=== PATIENT | female | born 1995 | race Caucasian/White ===

== ENCOUNTER → 2017-08-29 | Outpatient (CLI) | payer MEDICAID ==
[~2017-08-29] MED LIST: MACR100C2 PO; PROM25TA10 PO; SPRI28TA PO; SUMA50 PO
== END ==
LOC: HPND 12:40
PROVIDERS: ATTEND Family Medicine
DX: O36.80X0 Pregnancy with inconclusive fetal viability, not applicable or unspecified (principal)
CPT/HCPCS: 76801

== ENCOUNTER 2017-09-05 19:24 | Emergency (ER) | payer MEDICAID ==
[~2017-09-05] VITALS: Ht 160 cm; Wt 102.3 kg
[~2017-09-05 19:24] MED LIST changes: -MACR100C2 PO; -PROM25TA10 PO
[2017-09-05 19:26] VITALS: BP 136/89; PULSE 98; RESP 16; TEMP 98.3; O2SAT 98
[2017-09-05] MEDS ORDERED: SODIUM CHLOR 0.9% 1000 ML INJ 1,000 ML IV ONE (19:49)
--- NOTE | 2017-09-05 19:52 | PD ---
HPI Chief Complaint: Related Problem Time Seen by Provider: 19:40 Travel History International Travel<30 days: No Contact w/Intl Traveler<30days: No Traveled to known affect area: No History of Present Illness HPI This is a 22-year-old female at estimated gestational age 11 weeks based on ultrasound at her clinical support tech's office 2 weeks ago. She presents for evaluation nausea and vomiting. For the past 3 days she has had nausea, vomiting, difficulty keeping food and fluids down. Symptoms are moderate, aggravated by , worst in the morning. She endorses some white vaginal discharge for the past week as well. She denies any abdominal pain, fevers or chills, flank pain, dysuria, chest pain or shortness of breath. She has no other complaints at this time. PFSH Past Medical History ?: Social History Alcohol Use: No Tobacco Use: No Substance Use: No Allergies-Medications (Allergen,Severity, Reaction): Coded Allergies: cefepime (Unverified Allergy, Severe, Hives, 08/14/17) ceftaroline fosamil (Unverified Allergy, Severe, Hives, 08/14/17) Reported Meds & Prescriptions Reported Meds & Active Scripts Active Macrobid (Nitrofurantoin Monohydrate Macrocrystals) 100 Mg Capsule 100 Mg PO BID 7 Days Phenergan (Promethazine HCl) 25 Mg Tablet 25 Mg PO Q6H PRN Review of Systems Except as stated in HPI: all other systems reviewed are Neg Physical Exam Narrative GENERAL: Well-developed well-nourished female in no acute distress SKIN: Warm and dry. HEAD: Atraumatic. Normocephalic. EYES: Pupils equal and round. No scleral icterus. No injection or drainage. ENT: No nasal bleeding or discharge. Mucous membranes pink and moist. NECK: Trachea midline. No JVD. CARDIOVASCULAR: Regular rate and rhythm. No murmur appreciated. RESPIRATORY: No accessory muscle use. Clear to auscultation. Breath sounds equal bilaterally. GASTROINTESTINAL: Abdomen soft, non-tender, nondistended. Hepatic and splenic margins not palpable. heart tones obtained, 130. MUSCULOSKELETAL: No obvious deformities. No clubbing. No cyanosis. No edema. NEUROLOGICAL: Awake and alert. No obvious cranial nerve deficits. Motor grossly within normal limits. Normal speech. PSYCHIATRIC: Appropriate mood and affect; insight and judgment normal. Data Data Last Documented VS Vital Signs Date Time Temp Pulse Resp B/P (MAP) Pulse Ox O2 Delivery O2 Flow Rate FiO2 09/05/17 19:26 98.3 98 16 136/89 (105) 98 Room Air Orders Orders Complete Blood Count With Diff (09/05/17 19:49) Basic Metabolic Panel (Bmp) (09/05/17 19:49) Gc And Chlamydia Pcr (09/05/17 19:49) Wet Prep Profile (09/05/17 19:49) Urinalysis - C+S If Indicated (09/05/17 19:49) Iv Access Insert/Monitor (09/05/17 19:49) Sodium Chlor 0.9% 1000 Ml Inj (Ns 1000 M (09/05/17 19:49) Ondansetron Inj (Zofran Inj) (09/05/17 20:00) Potassium Chloride (Kcl) (09/05/17 21:15) Ed Discharge Order (09/05/17 21:42) Labs Laboratory Tests Test 09/05/17 20:04 09/05/17 20:14 Urine Color YELLOW Urine Turbidity HAZY Urine pH 6.0 Urine Specific [place] 1.037 Urine Protein 30 mg/dL Urine Glucose (UA) NEG mg/dL Urine Ketones TRACE mg/dL Urine Occult Blood NEG Urine Nitrite NEG Urine Bilirubin NEG Urine Urobilinogen 2.0 MG/DL Urine Leukocyte Esterase TRACE Urine RBC 2 /hpf Urine WBC 3 /hpf Urine Squamous Epithelial Cells 4 /hpf Urine Bacteria RARE /hpf Urine Mucus MANY /lpf Microscopic Urinalysis Comment CULT NOT INDICATED Clue Cells (Wet Prep) NONE SEEN Vaginal Trichomonas (Wet Prep) NONE SEEN Vaginal Yeast (Wet Prep) NONE SEEN White Blood Count 11.9 TH/MM3 Red Blood Count 4.67 MIL/MM3 Hemoglobin 13.1 GM/DL Hematocrit 38.8 % Mean Corpuscular Volume 83.2 FL Mean Corpuscular Hemoglobin 28.1 PG Mean Corpuscular Hemoglobin Concent 33.8 % Red Cell Distribution Width 14.9 % Platelet Count 261 TH/MM3 Mean Platelet Volume 9.6 FL Neutrophils (%) (Auto) 78.0 % Lymphocytes (%) (Auto) 14.1 % Monocytes (%) (Auto) 7.2 % Eosinophils (%) (Auto) 0.4 % Basophils (%) (Auto) 0.3 % Neutrophils # (Auto) 9.3 TH/MM3 Lymphocytes # (Auto) 1.7 TH/MM3 Monocytes # (Auto) 0.9 TH/MM3 Eosinophils # (Auto) 0.0 TH/MM3 Basophils # (Auto) 0.0 TH/MM3 CBC Comment DIFF FINAL Differential Comment Blood Urea Nitrogen 6 MG/DL Creatinine 0.70 MG/DL Random Glucose 84 MG/DL Calcium Level 8.9 MG/DL Sodium Level 135 MEQ/L Potassium Level 3.4 MEQ/L Chloride Level 104 MEQ/L Carbon Dioxide Level 23.1 MEQ/L Anion Gap 8 MEQ/L Estimat Glomerular Filtration Rate 106 ML/MIN [facility] Medical Decision Making Medical Screen Exam Complete: Yes Emergency Medical Condition: Yes Medical Record Reviewed: Yes Differential Diagnosis Nausea and vomiting in , hyperemesis gravidarum, dehydration, electrolyte abnormality Narrative Course 22-year-old female 11 weeks gestational age presents with 3 days of nausea and vomiting and one week of white vaginal discharge. Physical examination is reassuring. Her abdomen is soft and nontender. Plan is for basic lab work, pelvic examination. She will be given IV fluids and Zofran which is category B and we discussed the risk and benefits of Zofran. Upon reexamination the patient feels improved, tolerating oral hydration. Urinalysis reveals a symptomatic bacteriuria. Potassium is 3.4, she was given oral potassium chloride. She is stable for discharge. Diagnosis Primary Impression: Asymptomatic bacteriuria Additional Impression: Nausea and vomiting during Additional Instructions: Medication as prescribed. Advance diet as tolerated. Follow-up with clinical support tech. Return for any emergent medical conditions. Med/Other Pt SpecificInfo: Prescription(s) given Scripts Nitrofurantoin Monohydrate Macrocrystals (Macrobid) 100 Mg Capsule 100 MG PO BID for Infection for 7 Days, #14 CAP 0 Refills Prov: Paulina Stephenson DO 09/05/17 Promethazine (Phenergan) 25 Mg Tablet 25 MG PO Q6H Y for NAUSEA OR VOMITING, #20 TAB 0 Refills Prov: Paulina Stephenson DO 09/05/17 Disposition: 01 DISCHARGE HOME Condition: Stable Andrew Sorenson Sep 05, 2017 19:52
[2017-09-05] MEDS ORDERED: ONDANSETRON HCL 4 MG/2 ML VIAL IVP ONE (20:00)
[2017-09-05 20:43] LABS: BACTERIA, URINE RARE /hpf; BILIRUBIN, URINE NEG (NEG); BLOOD, URINE NEG (NEG); GLUCOSE,URINE NEG (NEG); KETONE, URINE TRACE mg/dL (NEG); MUCUS URINE MANY /lpf (OCC); NITRITE,URINE NEG (NEG); SQUAMOUS EPITHELIAL CELL URINE 4 /hpf (0-5); URINE COLOR YELLOW (YELLW/STRAW); URINE LEUKOCYTE ESTERASE TRACE (NEG)
[2017-09-05 20:44] LABS: AUTOMATED NEUTROPHIL # 9.3 TH/MM3 (1.8-7.7); BASOPHIL % 0.3 % (0.0-2.0); EOSINOPHIL % 0.4 % (0.0-4.0); HEMATOCRIT 38.8 % (35.0-46.0); HEMOGLOBIN 13.1 GM/DL (11.6-15.3); LYMPH % 14.1 % (9.0-44.0); LYMPHOCYTE # 1.7 TH/MM3 (1.0-4.8); MEAN CELL VOLUME 83.2 FL (80.0-100.0); MEAN CORPUSCULAR HEMOGLOBIN 28.1 PG (27.0-34.0); MEAN CORPUSCULAR HGB CONC 33.8 % (32.0-36.0); MEAN PLATELET VOLUME 9.6 FL (7.0-11.0); MONO % 7.2 % (0.0-8.0); MONOCYTE # 0.9 TH/MM3 (0-0.9); PLATELET COUNT 261 TH/MM3 (150-450); RED BLOOD COUNT 4.67 MIL/MM3 (4.00-5.30); RED CELL DISTRIBUTION WIDTH 14.9 % (11.6-17.2); WHITE BLOOD COUNT 11.9 TH/MM3 (4.0-11.0)
[2017-09-05 20:49] LABS: BICARBONATE 23.1 MEQ/L (21.0-32.0); CALCIUM 8.9 MG/DL (8.5-10.1); CREATININE 0.7 MG/DL (0.50-1.00)
[2017-09-05] MEDS ORDERED: POTASSIUM CHLORIDE 20 MEQ CONTROLLED RELEASE TAB PO ONE (21:15)
[2017-09-05] MEDS ORDERED: MACR100C2 PO (21:41)
[2017-09-05] MEDS ORDERED: PROM25TA10 PO (21:41)
== END 2017-09-05 21:55 | disposition home or self-care (01) ==
LOC: NEPD 19:24
DX: O21.9 Vomiting of pregnancy, unspecified (principal); R82.71 Bacteriuria; Z3A.11 11 weeks gestation of pregnancy
CPT/HCPCS: 80048; 81001; 85025; 87210; 87491; 87591; 96361; 96374; 99284; J2405; J7030

== ENCOUNTER 2017-10-08 12:57 | Emergency (ER) | payer MEDICAID ==
[~2017-10-08 12:57] MED LIST changes: +MACR100C2 PO; +PROM25TA10 PO; -SPRI28TA PO; -SUMA50 PO
[2017-10-08 12:59] VITALS: BP 120/74; PULSE 89; RESP 16; TEMP 98.7; O2SAT 100
[2017-10-08 14:25] LABS: AUTOMATED NEUTROPHIL # 8.3 TH/MM3 (1.8-7.7); BASOPHIL % 0.2 % (0.0-2.0); EOSINOPHIL % 0.4 % (0.0-4.0); HEMATOCRIT 38.8 % (35.0-46.0); HEMOGLOBIN 13.6 GM/DL (11.6-15.3); LYMPH % 13.7 % (9.0-44.0); LYMPHOCYTE # 1.4 TH/MM3 (1.0-4.8); MEAN CELL VOLUME 84.4 FL (80.0-100.0); MEAN CORPUSCULAR HEMOGLOBIN 29.5 PG (27.0-34.0); MEAN CORPUSCULAR HGB CONC 34.9 % (32.0-36.0); MEAN PLATELET VOLUME 10.1 FL (7.0-11.0); MONOCYTE # 0.6 TH/MM3 (0-0.9); NEUT % 79.7 % (16.0-70.0); PLATELET COUNT 228 TH/MM3 (150-450); RED CELL DISTRIBUTION WIDTH 14.1 % (11.6-17.2); WHITE BLOOD COUNT 10.4 TH/MM3 (4.0-11.0)
[2017-10-08 14:45] LABS: ALBUMIN 3.1 GM/DL (3.4-5.0); AST (GOT) 25 U/L (15-37); BICARBONATE 21.4 MEQ/L (21.0-32.0); BLOOD UREA NITROGEN 4 MG/DL (7-18); CALCIUM 9.2 MG/DL (8.5-10.1); CHLORIDE 102 MEQ/L (98-107); CREATININE 0.53 MG/DL (0.50-1.00); GLOMERULAR FILTRATION RATE 146 ML/MIN (>89); GLUCOSE,RANDOM 73 MG/DL (74-106); LIPASE 86 U/L (73-393); SODIUM (NA) 135 MEQ/L (136-145)
[2017-10-08 14:47] LABS: ALT (GPT) 39 U/L (10-53)
[2017-10-08 14:50] LABS: ALKALINE PHOSPHATASE 100 U/L (45-117); TOTAL BILIRUBIN ADULT 0.3 MG/DL (0.2-1.0); TOTAL PROTEIN 7.9 GM/DL (6.4-8.2)
[2017-10-08] MEDS ORDERED: ONDANSETRON ODT 4 MG TAB PO ONE (16:00)
[2017-10-08] MEDS ORDERED: ZOFR4TAB3 SL ×2 (16:25→16:30)
--- NOTE | 2017-10-08 16:25 | PD ---
HPI Chief Complaint: Related Problem Time Seen by Provider: 15:54 Travel History International Travel<30 days: No Contact w/Intl Traveler<30days: No Traveled to known affect area: No History of Present Illness HPI 22 year-old woman, presents to the emergency department complaining of nausea vomiting setting of . She about 15 weeks . She's had nausea vomiting throughout the . States the medicines she has are not helping. No vaginal discharge or vaginal bleeding. Some abdominal cramping just with throwing up, no other abdominal pains or pelvic cramping. Diarrhea day or so ago, this with constipation, now back to normal. No urinary symptoms. History Past Medical History Medical History: Denies Significant Hx Past Surgical History Surgical History: No Previous Surgery Social History Alcohol Use: No Tobacco Use: No Allergies-Medications (Allergen,Severity, Reaction): Coded Allergies: cefepime (Unverified Allergy, Severe, Hives, 10/08/17) ceftaroline fosamil (Unverified Allergy, Severe, Hives, 10/08/17) Reported Meds & Prescriptions Reported Meds & Active Scripts Active Phenergan (Promethazine HCl) 25 Mg Tablet 25 Mg PO Q6H PRN Review of Systems Except as stated in HPI: all other systems reviewed are Neg Physical Exam Narrative GENERAL: Well-appearing 22 woman, no acute distress. SKIN: Focused skin assessment warm/dry. HEAD: Atraumatic. Normocephalic. EYES: Pupils equal and round. No scleral icterus. No injection or drainage. ENT: No nasal bleeding or discharge. Mucous membranes pink and moist. NECK: Trachea midline. No JVD. CARDIOVASCULAR: Regular rate and rhythm. No murmur appreciated. RESPIRATORY: No accessory muscle use. Clear to auscultation. Breath sounds equal bilaterally. GASTROINTESTINAL: Abdomen soft, non-tender, nondistended. Hepatic and splenic margins not palpable. MUSCULOSKELETAL: No obvious deformities. No clubbing. No edema. NEUROLOGICAL: Awake and alert. No obvious cranial nerve deficits. Motor grossly within normal limits. Normal speech. PSYCHIATRIC: Appropriate mood and affect; insight and judgment normal. Data Data Last Documented VS Vital Signs Date Time Temp Pulse Resp B/P (MAP) Pulse Ox O2 Delivery O2 Flow Rate FiO2 10/08/17 12:59 98.7 89 16 120/74 (89) 100 Orders Orders Complete Blood Count With Diff (10/08/17 13:11) Comprehensive Metabolic Panel (10/08/17 13:11) Lipase (10/08/17 13:11) Ondansetron Odt (Zofran Odt) (10/08/17 16:00) Labs Laboratory Tests Test 10/08/17 13:25 White Blood Count 10.4 TH/MM3 Red Blood Count 4.60 MIL/MM3 Hemoglobin 13.6 GM/DL Hematocrit 38.8 % Mean Corpuscular Volume 84.4 FL Mean Corpuscular Hemoglobin 29.5 PG Mean Corpuscular Hemoglobin Concent 34.9 % Red Cell Distribution Width 14.1 % Platelet Count 228 TH/MM3 Mean Platelet Volume 10.1 FL Neutrophils (%) (Auto) 79.7 % Lymphocytes (%) (Auto) 13.7 % Monocytes (%) (Auto) 6.0 % Eosinophils (%) (Auto) 0.4 % Basophils (%) (Auto) 0.2 % Neutrophils # (Auto) 8.3 TH/MM3 Lymphocytes # (Auto) 1.4 TH/MM3 Monocytes # (Auto) 0.6 TH/MM3 Eosinophils # (Auto) 0.0 TH/MM3 Basophils # (Auto) 0.0 TH/MM3 CBC Comment DIFF FINAL Differential Comment Blood Urea Nitrogen 4 MG/DL Creatinine 0.53 MG/DL Random Glucose 73 MG/DL Total Protein 7.9 GM/DL Albumin 3.1 GM/DL Calcium Level 9.2 MG/DL Alkaline Phosphatase 100 U/L Aspartate Amino Transf (AST/SGOT) 25 U/L Alanine Aminotransferase (ALT/SGPT) 39 U/L Total Bilirubin 0.3 MG/DL Sodium Level 135 MEQ/L Potassium Level 3.5 MEQ/L Chloride Level 102 MEQ/L Carbon Dioxide Level 21.4 MEQ/L Anion Gap 12 MEQ/L Estimat Glomerular Filtration Rate 146 ML/MIN Lipase 86 U/L MDM Medical Decision Making Medical Screen Exam Complete: Yes Emergency Medical Condition: Yes Differential Diagnosis CBC unremarkable. CBC unremarkable CMP unremarkable normal and lipase normal Narrative Course 22 year-old woman, , vomiting, taking Phenergan at home but still throwing it up. Benefit from schedule Zofran, when necessary Phenergan, outpatient follow-up. Diagnosis Primary Impression: Excessive vomiting Additional Instructions: Takes Zofran 3 times daily, scheduled. Continue promethazine as needed. Return to the emergency department for any new or worsening symptoms. Med/Other Pt SpecificInfo: Prescription(s) given Scripts Ondansetron Odt (Zofran Odt) 4 Mg Tab 4 MG SL Q8HR Y for Nausea/Vomiting, #30 TAB 0 Refills Prov: Demario Real MD 10/08/17 Disposition: 01 DISCHARGE HOME Condition: Stable Demario Real MD Oct 08, 2017 16:25
== END 2017-10-08 16:52 | disposition home or self-care (01) ==
LOC: NEPD 12:57
DX: O21.9 Vomiting of pregnancy, unspecified (principal); Z3A.15 15 weeks gestation of pregnancy
CPT/HCPCS: 80053; 83690; 85025; 99283

== ENCOUNTER 2017-10-12 08:09 | Emergency (ER) | payer MEDICAID ==
[~2017-10-12] VITALS: Ht 160 cm; Wt 106.6 kg
[~2017-10-12 08:09] MED LIST changes: -MACR100C2 PO; +ZOFR4TAB3 SL
[2017-10-12 08:10] VITALS: BP 134/77; PULSE 83; RESP 16; TEMP 98.4; O2SAT 99
--- NOTE | 2017-10-12 09:23 | PD ---
HPI Chief Complaint vaginal discharge Date Seen: Oct 12, 2017 Time Seen: 09:20 Travel History International Travel<30 Days: No Contact w/Intl Traveler<30Days: No History of Present Illness HPI Mrs. Steele is a 22-year-old female who presents today to the ED for vaginal discharge. She states her symptoms started yesterday and have worsened. He describes a vaginal discharge is thick, white and creamy. Denies any dysuria or foul odor. Endorses burning, especially during sexual intercourse. Her last sexual intercourse was 2 days ago. Denies any history of sexually transmitted infections. Denies any symptoms like this before. Otherwise, denies any other symptoms. Denies any vaginal bleeding, loss of fluids, contractions. Endorses good movement. Sees Dr. Matthew in the [facility]. Weeks Gestation: 16 Para: 0 : 1 History Past Medical History Medical History: Denies Significant Hx Obstetric History Obstetric History Past Surgical History Surgical History: No Previous Surgery Family History Family History: Negative Social History Alcohol Use: No Tobacco Use: No Substance Abuse: No Allergies-Medications (Allergen,Severity, Reaction): Coded Allergies: cefepime (Unverified Allergy, Severe, Hives, 10/12/17) ceftaroline fosamil (Unverified Allergy, Severe, Hives, 10/12/17) Home Meds Active Scripts Ondansetron Odt (Zofran Odt) 4 Mg Tab, 4 MG SL Q8HR Y for Nausea/Vomiting, #30 TAB 0 Refills Prov:Demario Real MD 10/08/17 Ondansetron Odt (Zofran Odt) 4 Mg Tab, 4 MG SL Q8HR Y for Nausea/Vomiting, #30 TAB 0 Refills Prov:Demario Real MD 10/08/17 Promethazine (Phenergan) 25 Mg Tablet, 25 MG PO Q6H Y for NAUSEA OR VOMITING, # 20 TAB 0 Refills Prov:Paulina Stephenson DO 09/05/17 Discontinued Scripts Nitrofurantoin Monohydrate Macrocrystals (Macrobid) 100 Mg Capsule, 100 MG PO BID for Infection for 7 Days, #14 CAP 0 Refills Prov:Paulina Stephenson DO 09/05/17 Review of Systems General / Constitutional: No: Fever, Weight Gain, Chills, Other Eyes: No: Diploplia, Blurred Vision, Visual changes, Pain, Photophobia HENT: No: Headaches, Vertigo, Lightheadedness Cardiovascular: No: Irregular Rhythm, Chest Pain or Discomfort, Palpitations, Tachycardia, Syncope, Varicosities, Edema, Cyanosis Respiratory: No: Cough, Short of Breath, Other Gastrointestinal: No: Nausea, Vomiting, Diarrhea Genitourinary: Discharge, No: Urgency, Frequency, Dysuria, Decreased Urinary Output, Oliguria, Incontinence, Pelvic Pain, Vaginal Bleeding Musculoskeletal: No: Limited ROM, Weakness, Cramping, Edema, Pain Skin: No Rash, No Itching, No Dryness, No Lumps, No Change in Pigmentation, No Change in Nails, No Alopecia, No Lesions Neurologic: No: Weakness, Dizziness, Syncope, Focal Abnormalities, Coordination Problem, Headache, Slurred Speech, Seizures Psychiatric: No: Depression, Suicidal Ideations, Homicidal Ideation Endocrine: No: Heat Intolerance, Cold Intolerance, Polydipsia, Polyuria, Other Physical Exam Vital Signs Date Time Temp Pulse Resp B/P (MAP) Pulse Ox O2 Delivery O2 Flow Rate FiO2 10/12/17 08:10 98.4 83 16 134/77 (96) 99 Narrative GENERAL: Well-nourished, well-developed patient. SKIN: Warm and dry. HEAD: Normocephalic and atraumatic. EYES: No scleral icterus. No injection or drainage. ENT: No nasal drainage noted. Mucous membranes pink. Airway patent. NECK: Supple, trachea midline. No JVD. CARDIOVASCULAR: Regular rate and rhythm without murmurs, gallops, or rubs. RESPIRATORY: Breath sounds equal bilaterally. No accessory muscle use. ABDOMEN/GI: Abdomen soft, non-tender, bowel sounds present, no rebound, no guarding Gravid to 16 weeks size GENITOURINARY: External Genitalia: intact and normal in appearance Cervix free of inflammation. White creamy discharge present in vaginal vault. Cultures obtained EXTREMITIES: No cyanosis or edema. BACK: Nontender without obvious deformity. No CVA tenderness. NEUROLOGICAL: Awake and alert. Motor and sensory grossly within normal limits. Five out of 5 muscle strength in all muscle groups. Normal speech. Data Data Vital Signs Reviewed: Yes [facility] Medical Record Reviewed: Yes Interpretation(s) 22 y/o G1 at 16/2 presents with vaginal discharge. Speculum exam shows white discharge in vaginal vault. No cervical inflammation. Wet prep collected FHT reactive Narrative Course / MDM Wet prep negative. D/c home and f/u outpatient. Has appt next week with Dr. Matthew. Return to ED if vaginal bleeding, loss of fluids, severe contractions Diagnosis Diagnosis: Primary Impression: Vaginal discharge during Qualified Codes: O26.892 - Other specified related conditions, second trimester; N89.8 - Other specified noninflammatory disorders of vagina Disposition: 01 DISCHARGE HOME Condition: Stable Gregg Celeste MD Oct 12, 2017 09:23
[2017-10-17] MEDS ORDERED: NITR1CAP36 PO (15:23)
== END 2017-10-12 15:35 | disposition home or self-care (01) ==
LOC: HOBED 08:09
DX: O26.892 Other specified pregnancy related conditions, second trimester (principal); N89.8 Other specified noninflammatory disorders of vagina; Z3A.16 16 weeks gestation of pregnancy
CPT/HCPCS: 87210; 99283

== ENCOUNTER → 2017-10-31 | Outpatient (CLI) | payer MEDICAID ==
[~2017-10-31] MED LIST changes: +NITR1CAP36 PO; -PROM25TA10 PO
== END ==
LOC: HPND 13:49
PROVIDERS: ATTEND Family Medicine
DX: O99.212 Obesity complicating pregnancy, second trimester (principal); E66.09 Other obesity due to excess calories; Z68.32 Body mass index [BMI] 32.0-32.9, adult; Z36.3 Encounter for antenatal screening for malformations
CPT/HCPCS: 76805

== ENCOUNTER 2017-11-10 10:58 | Emergency (ER) | payer MEDICAID ==
--- NOTE | 2017-11-10 11:49 | PD ---
HPI Chief Complaint vaginal d/c and nausea/vomitting Date Seen: Nov 10, 2017 Time Seen: 11:39 Travel History International Travel<30 Days: No Contact w/Intl Traveler<30Days: No Known Affected Area: No History of Present Illness HPI Pt is a 22y/o G1 @ 20.3wks. She has PNC with the Family Medicine clinic. She presents today stating that for 2 weeks she has had vaginal itching with a thick white discharge. She was seen in clinic but no Rx was given. She reports that she was told if the symptoms continue she needed to call back. She states that she called back but did not receive a return call. She has not tried OTC monistat. She also reports N/V of preg and is out of zofran. Weeks Gestation: 20 Para: 0 : 1 History Past Medical History Medical History: Denies Significant Hx Past Surgical History Surgical History: No Previous Surgery Family History Family History: Negative Social History Alcohol Use: No Tobacco Use: No Substance Abuse: No Allergies-Medications (Allergen,Severity, Reaction): Coded Allergies: Cephalosporins (Verified Allergy, Severe, 11/10/17) cefepime (Unverified Allergy, Severe, Hives, 10/12/17) ceftaroline fosamil (Unverified Allergy, Severe, Hives, 10/12/17) Home Meds Active Scripts Nitrofurantoin Macrocrystal (Nitrofurantoin Macrocrystal) 100 Mg Cap, 100 MG PO BIDPC for Infection for 7 Days, #14 CAP 0 Refills Prov:Sarah Tyler MD R1 10/17/17 Ondansetron Odt (Zofran Odt) 4 Mg Tab, 4 MG SL Q8HR Y for Nausea/Vomiting, #30 TAB 0 Refills Prov:Demario Real MD 10/08/17 Review of Systems Except as stated in HPI: all other systems reviewed are Neg Physical Exam Narrative General: well developed, well nourished, no acute distress HEENT: normocephalic atraumatic, extraocular movements intact, neck supple Abdomen: soft, gravid, nontender, nondistended Uterus: non-tender Extremities: full range of motion Skin: normal coloration, no rashes, no suspicious skin lesions noted Neurologic: cranial nerves 2-12 grossly intact, normal muscle tone, normal gait Psychiatric: normal mood and affect, appropriate FHTs: +148 Data Data Vital Signs Reviewed: Yes Orders Orders Vital Signs (Adult) .ON ADMISSION (11/10/17 11:36) ^ Labor Status (11/10/17 11:36) Heart (11/10/17 11:36) Ed Discharge Order (11/10/17 11:36) MDM Plan 22y/o G1 @ 20.3wks with yeast infection and N/V. -- advised on OTC monistat and f/u in clinic -- Rx for zofran #10 and f/u in clinic -- +FHT Dispo: stable for d/c home with precautions Diagnosis Diagnosis: Primary Impression: 20 weeks gestation of Additional Impressions: Vaginal candidiasis Nausea and vomiting during prior to 22 weeks gestation Patient Instructions: General Instructions Departure Forms: Tests/Procedures Marshal Hu MD Nov 10, 2017 11:49
== END 2017-11-10 11:58 | disposition home or self-care (01) ==
LOC: HOBED 10:58
DX: O98.812 Other maternal infectious and parasitic diseases complicating pregnancy, second trimester (principal); B37.3 Candidiasis of vulva and vagina; Z3A.20 20 weeks gestation of pregnancy
CPT/HCPCS: 99283

== ENCOUNTER → 2017-12-12 | Outpatient (CLI) | payer MEDICAID | LOC: HPND 12:53 | PROVIDERS: ATTEND Family Medicine | DX: Z36.2 Encounter for other antenatal screening follow-up (principal); O99.212 Obesity complicating pregnancy, second trimester; E66.09 Other obesity due to excess calories; Z68.32 Body mass index [BMI] 32.0-32.9, adult | CPT/HCPCS: 76816 ==

== ENCOUNTER → 2018-01-28 | Outpatient (CLI) | payer MEDICAID | LOC: HPND 09:40 | PROVIDERS: ATTEND Family Medicine | DX: O24.410 Gestational diabetes mellitus in pregnancy, diet controlled (principal) | CPT/HCPCS: 76816 ==

== ENCOUNTER 2018-02-01 15:49 | Emergency (ER) | payer MEDICAID ==
[~2018-02-01] VITALS: Ht 160 cm; Wt 103.0 kg
--- NOTE | 2018-02-01 19:56 | PD ---
HPI Chief Complaint abdominal pain Date Seen: February 01, 2018 Time Seen: 17:00 Travel History International Travel<30 Days: No Contact w/Intl Traveler<30Days: No Known Affected Area: No History of Present Illness HPI Patient is a 22 year old at 32 and 2/7 weeks gestation by US, LEANN 03/27/18, who presents to the OB ED with abdominal pain x 3 days. She denies constipation with last bowel mvt yesterday. She denies leakage of fluid, vaginal bleeding, and contractions. She feels baby moving regularly. She denies GODWIN/N/V/D/fever/ sick contacts/SOB/calf pain/dizziness/seeing spots. OB care is with Dr. Loraine Tyler. History Past Medical History Medical History: Denies Significant Hx Obstetric History Obstetric History first Past Surgical History Surgical History: No Previous Surgery Family History Family History: Negative Social History Alcohol Use: No Tobacco Use: No Substance Abuse: No Allergies-Medications (Allergen,Severity, Reaction): Coded Allergies: Cephalosporins (Verified Allergy, Severe, 11/10/17) cefepime (Unverified Allergy, Severe, Hives, 10/12/17) ceftaroline fosamil (Unverified Allergy, Severe, Hives, 10/12/17) Comments severe rash with cephalosporins Home Meds Active Scripts Nitrofurantoin Macrocrystal (Nitrofurantoin Macrocrystal) 100 Mg Cap, 100 MG PO BIDPC for Infection for 7 Days, #14 CAP 0 Refills Prov:Sarah Tyler MD R1 10/17/17 Ondansetron Odt (Zofran Odt) 4 Mg Tab, 4 MG SL Q8HR Y for Nausea/Vomiting, #30 TAB 0 Refills Prov:Demario Real MD 10/08/17 Review of Systems General / Constitutional: No: Fever, Chills Eyes: No: Diploplia, Blurred Vision HENT: No: Headaches, Vertigo Cardiovascular: No: Chest Pain or Discomfort, Palpitations Respiratory: No: Cough, Short of Breath Gastrointestinal: Abdominal Pain, No: Nausea, Vomiting, Diarrhea, Constipation Genitourinary: No: Urgency, Dysuria Musculoskeletal: No: Weakness, Edema Skin: No Rash, No Itching Neurologic: No: Weakness, Syncope Physical Exam Narrative GENERAL: Well-nourished, well-developed patient. SKIN: Warm and dry. HEAD: Normocephalic and atraumatic. EYES: No scleral icterus. No injection or drainage. ENT: No nasal drainage noted. Mucous membranes pink. Airway patent. NECK: Supple, trachea midline. No JVD. CARDIOVASCULAR: Regular rate and rhythm without murmurs, gallops, or rubs. RESPIRATORY: Breath sounds equal bilaterally. No accessory muscle use. ABDOMEN/GI: Abdomen soft, non-tender, bowel sounds present, no rebound, no guarding. Gravid uterus is nontender. GENITOURINARY: External Genitalia: intact and normal in appearance Cervix: closed, thick, high Station: -3 Presentation: unable to assess due to pt refusal Membranes: intact Uterine Contractions: few contractions during tracing, now absent FHT's: Category: 1 Baseline: 135 Reactive: y Variability: mod Decels: absent EXTREMITIES: No cyanosis or edema. BACK: Nontender without obvious deformity. No CVA tenderness. NEUROLOGICAL: Awake and alert. Motor and sensory grossly within normal limits. Five out of 5 muscle strength in all muscle groups. Normal speech. Data Data Vital Signs Reviewed: Yes (130/76, P 104) Orders Orders Vital Signs (Adult) .ON ADMISSION (02/01/18 19:00) ^ Labor Status (02/01/18 19:00) ^ Non Stress Test (02/01/18 19:00) ^ Hydration (02/01/18 19:00) Labs unknown, <35 weeks at this time [facility] Medical Record Reviewed: Yes Narrative Course / MDM 22 year old at 32 and 2/7 weeks gestation by US, LEANN 03/27/18, who presents to the OB ED with abdominal pain x 3 days. Suspect [place] contractions and dehydration. Patient counseled. Intrauterine : Category 1 tracing Expect vaginal delivery Cervix closed, not in labor Reassuring tracing Intact membranes Routine care with Dr. Tyler Abdominal Pain: Intermittent CTX on monitor now resolved Hydration improved the contractions Instructed to use heating pad and acetaminophen DW Dr. Radha Jara Diagnosis Diagnosis: Primary Impression: [place] contractions Additional Impression: 32 weeks gestation of Disposition: 01 DISCHARGE HOME Condition: Stable Patient Instructions: Abdominal Pain in (ED), Labor (ED), Having Your Baby: The Labor Process (GEN) Roma Rutledge MD R2 February 01, 2018 19:56
--- NOTE | 2018-02-01 21:11 | PD ---
MDM Diagnosis Diagnosis: Primary Impression: [place] Tyson contractions Additional Impression: 32 weeks gestation of Disposition: 01 DISCHARGE HOME Condition: Good Patient Instructions: Labor (ED), Having Your Baby: The Labor Process ( GEN), Intimate Partner Abuse in (ED), Abdominal Pain in (ED) Additional Instructions: Please Follow up at scheduled OB appointment on . Please drink 8-10 glasses of water every day. Departure Forms: Tests/Procedures Ayla Jara MD February 01, 2018 21:03
== END 2018-02-01 20:59 | disposition home or self-care (01) ==
LOC: HOBED 15:49
DX: O47.03 False labor before 37 completed weeks of gestation, third trimester (principal); Z3A.32 32 weeks gestation of pregnancy
CPT/HCPCS: 59025